=== PATIENT | male | born 2000 | race Caucasian/White ===

== ENCOUNTER 2020-04-14 00:03 | Emergency (ER) | payer MEDICAID ==
[~2020-04-14] VITALS: Ht 180.3 cm; Wt 75.0 kg
[2020-04-14 00:32] VITALS: Ht 180.3 cm; Wt 75.0 kg
[2020-04-14 00:58] LABS: CALC OSMOLALITY 280 mosm/kg (275-300); CALCIUM 8.4 mg/dL (8.5-10.1); CARBON DIOXIDE 28.7 mmol/L (21.0-32.0); CHLORIDE - SERUM 102 mmol/L (98-107); CREATININE - SERUM 1.2 mg/dL (0.6-1.3); GLUCOSE 104 mg/dL (74-106); POTASSIUM - SERUM 3.6 mmol/L (3.5-5.1); SODIUM 139 mmol/L (136-145); UREA NITROGEN 21 mg/dL (7-18); eGFR NON AFRICAN AMERICAN 81 mL/min (90-120)
[2020-04-14 01:03] LABS: ALBUMIN 4.5 g/dL (3.4-5.0); ALKALINE PHOSPHATASE 93 U/L (30-120); ALT (SGPT) 24 U/L (10-68); PROTEIN - SERUM 7.7 g/dL (6.4-8.2)
[2020-04-14 01:08] LABS: BASOPHILS 0.5 % (0-2); EOSINOPHILS 2.7 % (0-7); HEMATOCRIT 47.9 % (42.0-54.0); HEMOGLOBIN 16.3 g/dL (13.5-17.5); IMMATURE GRANULOCYTES 0.1 % (0-5); LYMPHOCYTES 39.5 % (15-50); MCH 30.5 pg (26.0-34.0); MCV 89.5 fL (80.0-100.0); MEAN PLATELET VOLUME 9.2 fL (7.4-10.4); MONOCYTES 8.2 % (2-11); PLATELET COUNT 258 10x3/uL (130-400); RBC 5.35 10x6/uL (4.20-6.10); RDW 12.1 % (11.5-14.5); WBC 8.2 10x3/uL (4.8-10.8)
[2020-04-14] MEDS ORDERED: EPIPEN 2-P0.3 MG/0.3 IM (01:50)
[2020-04-14] MEDS ORDERED: PREDNISONE50 MG PO (01:50)
[2020-04-14 02:10] VITALS: BP 110/61
== END 2020-04-14 02:10 | disposition home or self-care (01) ==
LOC: D.ER 00:03
PROVIDERS: Family Medicine
DX: T78.2XXA Anaphylactic shock, unspecified, initial encounter (principal); R06.02 Shortness of breath; R21 Rash and other nonspecific skin eruption